=== PATIENT | female | born 1945 | race Caucasian/White ===

== ENCOUNTER → 2016-10-12 | Outpatient (CLI) | payer MEDICARE, BC ==
[~2016-10-12] MED LIST: 3N1 COMMODE MC; ASPI325T32 PO; OXYC-481 PO; SYN1 PO; TRIA1TAB PO; WALK1EAC23 MC
--- NOTE | 2016-10-12 15:32 | RADRPT ---
PROCEDURE: XR Right hip and pelvis. CLINICAL INDICATION: Right hip pain. Pelvic pain. Postop. TECHNIQUE: Three views. Frontal pelvis. Frontal and lateral right hip. COMPARISON: 06/24/2016. FINDINGS: There is no fracture or dislocation. The soft tissues are normal. There is a right hip total arthroplasty which appears satisfactory. There are mild degenerative changes of the left hip with osteophytes noted and mild joint space narr owing. There is no lytic or blastic lesion. There are degenerative changes of the lower lumbar spine. IMPRESSION: 1. Satisfactory postoperative appearance of the right hip. 2. Degenerative changes of the left hip and lower lumbar spine. RPTAT: QQ .Rufino Pollard MD, Date Time Electronically viewed and signed by .Rufino Pollard MD, on 10/12/2016 15:31 .R/
== END | disposition home or self-care (01) ==
LOC: HKI 13:48
PROVIDERS: ATTEND Orthopaedic Surgery
DX: M25.561 Pain in right knee (principal); M25.562 Pain in left knee; M17.0 Bilateral primary osteoarthritis of knee; Z96.641 Presence of right artificial hip joint
CPT/HCPCS: 73502; G0463